=== PATIENT | female | born 1955 | race Caucasian/White ===

== ENCOUNTER → 2018-01-05 | Outpatient (CLI) | payer OTHER ==
[~2018-01-05] MED LIST: ADULT LOW DOSE81 MG PO; ALLEGRA180 MG PO; AMLODIPINE BESYL5 MG; AZITHROMYCIN 2250 MG PO; AZOR 5-40 MG T1 EACH PO; CIPROFLOXACIN500 M1 PO; HYDROCODON-ACE1 EAC7 PO; IBUPROFEN 800800 M1 PO; LISINOPRIL10 MG PO; LOTENSIN40 MG; METFORMIN 500500 MG PO; METFORMIN HCL500 M2; MOBIC7.5 M1 PO; OS-CAL 500+D C1 EACH PO; PERCOCET 5-3251 EACH PO; PREMARIN0.625 MG PO; SIMVASTATIN20 MG; SIMVASTATIN20 MG PO; TAMSULOSIN HCL0.4 M1 PO; VICODIN 5-5001 EACH PO; VICTOZA0.6 MG/0.1; VITAMIN D10000 UNIT PO; ZOFRAN4 MG PO
== END ==
LOC: M.ULTRA 12-28 13:56 → M.RAD 01-03 09:00 → M.ULTRA 01-03 09:00 → M.CT 01-03 09:00
DX: Z12.31 Encounter for screening mammogram for malignant neoplasm of breast (principal); E04.2 Nontoxic multinodular goiter; K29.70 Gastritis, unspecified, without bleeding; K52.89 Other specified noninfective gastroenteritis and colitis